=== PATIENT | female | born 1995 | race American Indian/Alaskan Native ===

== ENCOUNTER 2017-09-07 20:51 | Emergency (ER) | payer BC ==
[2017-09-07] MEDS ORDERED: ASPIRIN PO ONE (21:17)
[2017-09-07 21:37] LABS: Basophils # (Auto) 0.1 K/mm3 (0.0-0.1); Basophils % (Auto) 0.7 % (0.0-1.8); Eosinophils # (Auto) 0.1 K/mm3 (0.0-0.4); Eosinophils % (Auto) 1.3 % (0.0-4.3); Hematocrit 36.4 % (30.3-42.9); Hemoglobin 11.3 gm/dl (10.1-14.3); Lymphocytes # (Auto) 3.2 K/mm3 (1.2-5.4); Lymphocytes % (Auto) 38.4 % (13.4-35.0); Mean Corpuscular HGB Conc 31 % (30-34); Mean Corpuscular Volume 74 fl (79-97); Monocytes # (Auto) 0.6 K/mm3 (0.0-0.8); Monocytes % (Auto) 6.6 % (0.0-7.3); Platelet Count 221 K/mm3 (140-440); Red Blood Count 4.91 M/mm3 (3.65-5.03); Red Cell Distribution Width 14.9 % (13.2-15.2)
[2017-09-07 21:45] LABS: Mean Corpuscular Hemoglobin 23 pg (28-32)
[2017-09-07 22:32] LABS: BUN/Creatinine Ratio 30; Blood Urea Nitrogen 12 mg/dL (7-17); Calcium 9.4 mg/dL (8.4-10.2); Hemolysis Index 4
[2017-09-07] MEDS ORDERED: MOTRIN PO ONE (23:58)
[2017-09-07] MEDS ORDERED: TYLENOL PO ONE (23:58)
--- NOTE | 2017-09-07 23:59 | Emergency Department Report ---
ED Chest Pain HPI - General Chief Complaint: Chest Pain Stated Complaint: LEFT ARM PAIN, CHEST PAIN Time Seen by Provider: 09/07/17 23:52 Source: patient, RN notes reviewed, old records reviewed Mode of arrival: Ambulatory Limitations: No Limitations - History of Present Illness Initial Comments: This is a 22-year-old female who is unknown to this provider previously. She has no chronic medical conditions. She reports that she is not . She denies DVT, pulmonary embolus risk factors. She has not taken aspirin in the past 7 days. She denies cocaine use. She denies family history of DVT, pulmonary embolus, cardiac disease. The patient presents to the ER with a complaint of intermittent left-sided chest wall pain. The pain does not radiate to the back, arms or neck. There is no vomiting, diaphoresis, shortness of breath. There is no leg pain, leg swelling, the patient does not take oral contraceptives, and she denies recent roaches, airplane ships, hospitalizations. She also complains of incidental nontraumatic left elbow pain , which is sharp and achy, does not radiate anywhere, increases with palpation and decreases with rest. MD Complaint: chest pain -: Gradual, hour(s) (patient reports chest wall pain started at 12:00 yesterday afternoon and is intermittent) Onset: during rest Pain Location: left chest Pain Radiation: none Quality: aching Consistency: intermittent Improves With: other Worsens With: other re: denies: nausea, vomting, diaphoresis, dyspnea, sense of impending doom Other Symptoms: denies: cough, fever, syncope, rash, acid taste in mouth, leg swelling, palpitations, burping Treatments Prior to Arrival: none Aspirin use within the Past 7 Days: (0) No - Related Data On Oral Contraceptives: No Previous Rx's Medication Instructions Recorded Last Taken Type Ibuprofen [Motrin] 400 mg PO Q8H PRN #30 tablet 09/08/17 Unknown Rx Allergies Allergy/AdvReac Type Severity Reaction Status Date / Time No Known Allergies Allergy Verified 09/07/17 23:56 Heart Score - HEART Score History: Slightly suspicious EKG: Normal Age: < 45 Risk factors: No known risk factors Troponin: < normal limit HEART Score: 0 - Critical Actions Critical Actions: 0-3 pts:0.9-1.7%risk of adverse cardiac event.Candidate for discharge ED Review of Systems ROS: Stated complaint: LEFT ARM PAIN, CHEST PAIN Other details as noted in HPI Comment: All other systems reviewed and negative Respiratory: denies: cough, shortness of breath Cardiovascular: chest pain Musculoskeletal: arthralgia, myalgia ED Past Medical Hx - Past Medical History Hx Diabetes: Yes (pre diabetic) - Surgical History Past Surgical History?: Yes Additional Surgical History: ankle surgery 2013 - Social History Smoking Status: Current Every Day Smoker Substance Use Type: None - Medications Home Medications: Home Medications Medication Instructions Recorded Confirmed Last Taken Type Ibuprofen [Motrin] 400 mg PO Q8H PRN #30 tablet 09/08/17 Unknown Rx ED Physical Exam - General Limitations: No Limitations General appearance: alert, in no apparent distress - Head Head exam: Present: atraumatic, normocephalic - Eye Eye exam: Present: normal appearance, EOMI. Absent: nystagmus - ENT ENT exam: Present: normal exam, normal orophraynx, mucous membranes moist, normal external ear exam - Neck Neck exam: Present: normal inspection, full ROM - Respiratory Respiratory exam: Present: normal lung sounds bilaterally, chest wall tenderness , other (bilateral breast exam are nontender. There is reproducible left-sided chest wall tenderness. Chaperoned by nurse Rachel Ruffin). Absent: respiratory distress, wheezes, rales, rhonchi, stridor - Cardiovascular Cardiovascular Exam: Present: regular rate, normal rhythm, normal heart sounds. Absent: bradycardia, tachycardia, irregular rhythm, systolic murmur, diastolic murmur, rubs, gallop - GI/Abdominal GI/Abdominal exam: Present: soft, normal bowel sounds. Absent: distended, tenderness, guarding, rebound, rigid, pulsatile mass - Extremities Exam Extremities exam: Present: normal inspection, full ROM, other (there is no palpable cord. There is a negative Homans sign. 2+ pulses noted in the bilateral upper, lower extremities, the pelvis is stable, there is no long bony tenderness). Absent: normal capillary refill, pedal edema, joint swelling, calf tenderness - Back Exam Back exam: Present: normal inspection, full ROM. Absent: paraspinal tenderness , vertebral tenderness - Neurological Exam Neurological exam: Present: alert, oriented X3, CN II-XII intact, normal gait, other (Extraocular movements intact. Tongue midline. No facial droop. Facial sensation intact to light touch in the V1, V2, V3 distribution bilaterally. 5 and 5 strength in 4 extremities.. Sensation is intact to light touch in 4 extremities.). Absent: motor sensory deficit - Psychiatric Psychiatric exam: Present: normal affect, normal mood - Skin Skin exam: Present: warm, dry, intact, normal color. Absent: rash ED Course Vital Signs 09/07/17 09/08/17 09/08/17 21:10 00:36 00:37 Temperature 98.2 F 97.9 F Pulse Rate 93 H 74 Respiratory 18 18 20 Rate Blood Pressure 123/77 Blood Pressure 122/80 [Right] O2 Sat by Pulse 100 Oximetry CHAIM score - Chaim Score Age > 65: (0) No Aspirin use within the Past 7 Days: (0) No 3 or more CAD Risk Factors: (0) No 2 or more Angina events in past 24 hrs: (0) No Known CAD with more than 50% Stenosis: (0) No Elevated Cardiac Markers: (0) No ST Deviation Greater than 0.5mm: (0) No CHAIM Score: 0 ED Medical Decision Making - Lab Data Result diagrams: 09/07/17 21:26 09/07/17 21:26 Vital Signs 09/07/17 09/08/17 09/08/17 21:10 00:36 00:37 Temperature 98.2 F 97.9 F Pulse Rate 93 H 74 Respiratory 18 18 20 Rate Blood Pressure 123/77 Blood Pressure 122/80 [Right] O2 Sat by Pulse 100 Oximetry Lab Results 09/07/17 09/07/17 09/07/17 Range/Units 21:26 21:26 21:26 WBC 8.3 (4.5-11.0) K/mm3 RBC 4.91 (3.65-5.03) M/mm3 Hgb 11.3 (10.1-14.3) gm/dl Hct 36.4 (30.3-42.9) % MCV 74 L (79-97) fl MCH 23 L (28-32) pg MCHC 31 (30-34) % RDW 14.9 (13.2-15.2) % Plt Count 221 (140-440) K/mm3 Lymph % (Auto) 38.4 H (13.4-35.0) % [facility] % (Auto) 6.6 (0.0-7.3) % Eos % (Auto) 1.3 (0.0-4.3) % Baso % (Auto) 0.7 (0.0-1.8) % Lymph # 3.2 (1.2-5.4) K/mm3 [facility] # 0.6 (0.0-0.8) K/mm3 Eos # 0.1 (0.0-0.4) K/mm3 Baso # 0.1 (0.0-0.1) K/mm3 Seg Neutrophils % 53.0 (40.0-70.0) % Seg Neutrophils # 4.4 (1.8-7.7) K/mm3 Sodium 142 (137-145) mmol/L Potassium 3.5 L (3.6-5.0) mmol/L Chloride 102.0 (98-107) mmol/L Carbon Dioxide 26 (22-30) mmol/L Anion Gap 18 mmol/L BUN 12 (7-17) mg/dL Creatinine 0.4 L (0.7-1.2) mg/dL Estimated GFR > 60 ml/min BUN/Creatinine Ratio 30 % Glucose 92 (65-100) mg/dL Calcium 9.4 (8.4-10.2) mg/dL Troponin T < 0.010 (0.00-0.029) ng/mL HCG, Qual Negative (Negative) - EKG Data -: EKG Interpreted by Me - EKG Data When compared to previous EKG there are: previous EKG unavailable 09/08/17 00:47 EKG #1 demonstrates normal sinus, 99 beats minute, normal axis, normal intervals , juvenile T-wave inversion V3, low voltage, abnormal EKG, not a STEMI EKG #2 is unchanged, demonstrates persistent low voltage, not a STEMI - Radiology Data Radiology results: image reviewed interpreted by me: X-ray of the chest, interpreted by me, no acute disease - Medical Decision Making Differential diagnosis, including but not limited to: Costochondritis, pneumonia , pericarditis, myocarditis, hiatal hernia, pneumothorax Assessment and plan: 22-year-old female with reproducible chest wall pain, symptoms present for greater than 8 hours, troponin drawn more than 8 hours after symptom onset, as per the [employer] clinical policy, acute myocardial infarction may be excluded with 1 set of cardiac enzymes as symptoms have been present for greater than 8 hours. The patient is low risk by CHAIM score, heart score, low risk by well's criteria, with no pulmonary embolus or DVT risk factors and is perc negative Troponin was negative 1, chest x-ray was unremarkable, not febrile or tachycardic, therefore pericarditis, myocarditis very unlikely, not hypertensive , equal pulses in the bilateral upper, lower extremities, normal x-ray of the chest, therefore aortic disease is very unlikely. Patient noted to be playing on a cell phone and speaking in no distress to her equine dentist. Patient is at low risk for major adverse cardiac event, and she is suitable to follow up with outpatient primary care doctor or cardiology. Critical care attestation.: If time is entered above; I have spent that time in minutes in the direct care of this critically ill patient, excluding procedure time. ED Disposition Clinical Impression: Chest wall pain Disposition: - TO HOME OR SELFCARE Is pt being admited?: No Does the pt Need Aspirin: No Condition: Good Instructions: Chest Pain (ED), Costochondritis (ED) Additional Instructions: Rest, and avoid heavy lifting. Avoid strenuous physical activities. Take pain medication as needed/directed. Follow up with a primary care doctor or criminal judge within the next 3-4 days. Return to the ER right away with new pain, worsened pain, migration of pain, fevers, chills, lethargy, irritability, projectile vomiting, change in mental status, confusion, possible consciousness , inability to tolerate liquid feedings. Referrals: PRIMARY CARE, [Primary Care Provider] - 3-5 Days [facility] [Provider Group] - 3-5 Days [facility] [Provider Group] - 3-5 Days
[2017-09-08] MEDS ORDERED: TYLENOL ONE (00:23)
[2017-09-08 00:37] VITALS: BP 122/80
--- NOTE | 2017-09-08 00:48 | XRay Report ---
FINAL REPORT EXAM: XR CHEST ROUTINE 2V HISTORY: chest pain COMPARISON: None available. FINDINGS:: Frontal and lateral views of the chest obtained. Cardiac silhouette is within normal limits. No focal consolidation or effusion. No pneumothorax. Visualized bony thorax is grossly intact. IMPRESSION:: No acute findings.
== END 2017-09-08 02:41 | disposition home or self-care (01) ==
LOC: ED 20:51
DX: R07.89 Other chest pain (principal); M25.522 Pain in left elbow; E11.9 Type 2 diabetes mellitus without complications; F17.200 Nicotine dependence, unspecified, uncomplicated; Z98.890 Other specified postprocedural states
CPT/HCPCS: 36415; 71046; 80048; 84484; 84703; 85025; 93005; 93010